=== PATIENT | female | born 1980 | race African-American/Black ===

== ENCOUNTER 2020-10-29 07:15 | Emergency (ER) | payer MEDICAID ==
[~2020-10-29] VITALS: Ht 162.6 cm; Wt 71.0 kg
[2020-10-29 07:18] VITALS: BP 121/81
== END 2020-10-29 12:46 | disposition home or self-care (01) ==
LOC: ER 07:15
DX: G57.81 Other specified mononeuropathies of right lower limb (principal); R20.2 Paresthesia of skin; Z86.16 Personal history of COVID-19
CPT/HCPCS: 93970; 99284